=== PATIENT | female | born 1985 | race Caucasian/White ===

== ENCOUNTER 2022-07-09 21:21 | Emergency (ER) | payer SELFPAY ==
[~2022-07-09] VITALS: Ht 160 cm; Wt 63.5 kg
--- NOTE | 2022-07-09 21:21 | NUR ---
PT BIB [facility], PREBOOK. TAKEN TO ER CHAIR
[2022-07-09 21:33] VITALS: BP 125/83
--- NOTE | 2022-07-09 21:39 | NUR ---
Patient resting in chair, A/Ox4, chest rise and fall symmetrical, no c/o pain or s/s of distress, [facility] officer with patient
[2022-07-09 22:55] VITALS: BP 125/83
--- NOTE | 2022-07-09 22:55 | NUR ---
PATIENT BIB [facility]ICE DEPT. PATIENT EXAMINED BY DR. CARTER. PATIENT MEDICALLY CLEARED AND RELEASED IN CUSTODY IN STABLE CONDITION. ORIGINAL PRE-BOOK FORM GIVEN TO OFFICER YOVANY.
== END 2022-07-09 22:55 ==
LOC: MED 21:21
DX: F41.9 Anxiety disorder, unspecified (principal); F32.9 Major depressive disorder, single episode, unspecified; Z02.89 Encounter for other administrative examinations
CPT/HCPCS: 99283